=== PATIENT | male | born 1970 | race Caucasian/White ===

== ENCOUNTER → 2024-11-26 | Outpatient (CLI) | payer BC, SELFPAY ==
--- NOTE | 2024-11-26 09:12 | XR_ITS ---
Examination: PA lateral chest 2 views TECHNIQUE: Upright PA lateral chest 2 views Exam date and time: November 26, 2024 0929 hours Comparison May 26, 2024 INDICATIONS: History chest pain shortness of breath FINDINGS: No significant cardiac enlargement Cardiac leads satisfactory position No pneumonia or pulmonary edema Moderate osteopenia IMPRESSION: No pneumonia or pulmonary edema
[2024-11-26 09:51] LABS: Collection Type, Urine Clean Catch
[2024-11-26 10:40] LABS: Alanine Aminotransferase 17 U/L (10-49); Albumin, Serum 4.1 gm/dL (3.5-5.0); Albumin/Globulin Ratio 2.3 (1.2-2.2); Alkaline Phosphatase 113 U/L (46-116); Anion Gap 4 (7-16); Aspartate Amino Transferase 47 U/L (0-34); BUN/Creatinine Ratio 21 Ratio (12-20); Bilirubin,Total 0.6 mg/dL (0.3-1.2); Blood Urea Nitrogen 19 mg/dL (9-23); Calcium 9.3 mg/dL (8.3-10.6); Calcium (Corrected) 9.3 mg/dL (8.5-10.1); Carbon Dioxide 30.9 mMol/L (20.0-31.0); Cardiac Risk Estimate 2.6 RATIO (4.0-6.7); Chloride 105 mMol/L (98-107); Cholesterol 145 mg/dL (132-200); Creatinine (Component) 0.9 mg/dL (0.6-1.3); Globulin 1.8 gm/dL (2.3-3.5); Glucose 101 mg/dL (74-106); HDL Cholesterol 55 mg/dL (40-60); LDL Cholesterol,Calculated 75 mg/dL (0-130); Osmolality,Calculated 281 (275-295); Potassium 4.7 mMol/L (3.4-5.1); Sodium 140 mMol/L (136-145); Total Protein 5.9 gm/dL (5.7-8.2); Triglycerides 73 mg/dL (30-150); eGFR > 60 See Note
[2024-11-26 10:43] LABS: Basophils # (Auto) 0.1 Thou/mm3 (0.0-0.2); Basophils % (Auto) 1 % (0-2.5); Eosinophils # (Auto) 0.2 Thou/mm3 (0.0-0.5); Eosinophils % (Auto) 3 % (0-10); Hematocrit 32.5 % (41.0-53.0); Hemoglobin 9.7 g/dL (13.5-16.0); Immature Granulocytes % (Auto) 1 % (0-0); Immature Granulocytes Auto 0.05 Thou/mm3 (0.00-0.00); Lymphocytes # (Auto) 1.5 Thou/mm3 (1.0-4.8); Lymphocytes % (Auto) 21 % (10-50); Mean Corpuscular HGB Conc 29.8 g/dl (31.0-37.0); Mean Corpuscular Hemoglobin 21.4 pg (25.0-35.0); Mean Corpuscular Volume 72 fL (80-100); Monocytes # (Auto) 0.6 Thou/mm3 (0.0-0.8); Monocytes % (Auto) 9 % (0-12); Neutrophils # (Auto) 4.6 Thou/mm3 (1.8-7.7); Neutrophils % (Auto) 65 % (37-80); Nucleated Red Blood Cell % 0 /100 WBC (0); Platelet Count 302 Thou/mm3 (140-440); RDW Standard Deviation 39.8 fL (35.1-43.9); Red Blood Count 4.54 Miln/mm3 (4.50-5.90)
[2024-11-26 11:50] LABS: Bacteria,Urine Rare; Bilirubin,Urine Negative (Negative); Blood,Urine Negative (Negative); Clarity,Urine Clear (Clear/Hazy); Color,Urine Lt-Yellow (Lt Yel-Yel); Glucose, Urine Negative (Negative); Ketones,Urine Negative (Negative); Leukocyte Esterase,Urine Negative (Negative); Nitrite,Urine Negative (Negative); Protein,Urine Trace (Neg - Trace); RBC,Urine 2 /hpf (0-3); Specific Gravity,Urine 1.025 (1.001-1.035); Squamous Epithelial Cell,Urine < 1 /hpf (0-5); Urobilinogen,Urine Negative mg/dL (0.0-1.0); WBC,Urine 1 /hpf (0-5)
== END | disposition home or self-care (01) ==
PROVIDERS: PCP Family Medicine; Referring Provider Specialist; Visit Provider Specialist
DX: R06.02 Shortness of breath (principal); R07.9 Chest pain, unspecified; I10 Essential (primary) hypertension; Z00.00 Encounter for general adult medical examination without abnormal findings; E66.01 Morbid (severe) obesity due to excess calories; E64.9 Sequelae of unspecified nutritional deficiency
CPT/HCPCS: 36415; 71046; 80053; 80061; 81001; 85025

== ENCOUNTER → 2025-01-01 | Outpatient (CLI) | payer BC, SELFPAY ==
--- NOTE | 2025-01-01 15:13 | XR_ITS ---
Examination: PA lateral chest 2 views TECHNIQUE: Upright PA lateral chest 2 views Exam date and time: January 01, 2025 1534 hours INDICATIONS: Coughing shortness of breath 2 weeks FINDINGS: No significant cardiac enlargement Mild vascular congestion Accentuation basilar bronchovascular markings No lobar pneumonia or pulmonary edema IMPRESSION: Basilar bronchitis pattern
== END | disposition home or self-care (01) ==
LOC: CDIM 14:56
PROVIDERS: PCP Family Medicine; Referring Provider Family Medicine; Visit Provider Family Medicine
DX: R05.9 Cough, unspecified (principal); R06.02 Shortness of breath
CPT/HCPCS: 71046

== ENCOUNTER → 2025-01-20 | Outpatient (CLI) | payer BC, SELFPAY ==
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
== END | disposition home or self-care (01) ==
PROVIDERS: PCP Family Medicine; Referring Provider Anesthesiology Pain Medicine; Visit Provider Anesthesiology Pain Medicine
DX: M85.88 Other specified disorders of bone density and structure, other site (principal); G95.29 Other cord compression
CPT/HCPCS: 72131

== ENCOUNTER → 2025-03-23 | Outpatient (CLI) | payer BC, SELFPAY ==
[2025-03-23 11:15] LABS: Basophils % (Auto) 1 % (0-2.5); Eosinophils # (Auto) 0.1 Thou/mm3 (0.0-0.5); Eosinophils % (Auto) 3 % (0-10); Hematocrit 37.2 % (41.0-53.0); Hemoglobin 10.9 g/dL (13.5-16.0); Immature Granulocytes % (Auto) 1 % (0-0); Immature Granulocytes Auto 0.03 Thou/mm3 (0.00-0.00); Lymphocytes # (Auto) 1.3 Thou/mm3 (1.0-4.8); Lymphocytes % (Auto) 29 % (10-50); Mean Corpuscular HGB Conc 29.3 g/dl (31.0-37.0); Mean Corpuscular Hemoglobin 21.8 pg (25.0-35.0); Mean Corpuscular Volume 74 fL (80-100); Monocytes # (Auto) 0.5 Thou/mm3 (0.0-0.8); Monocytes % (Auto) 11 % (0-12); Neutrophils # (Auto) 2.6 Thou/mm3 (1.8-7.7); Neutrophils % (Auto) 56 % (37-80); Nucleated Red Blood Cell % 0 /100 WBC (0); Platelet Count 252 Thou/mm3 (140-440); RDW Standard Deviation 50.4 fL (35.1-43.9); Red Blood Count 5.01 Miln/mm3 (4.50-5.90); White Blood Count 4.6 Thou/mm3 (3.8-10.6)
[2025-03-23 11:23] LABS: Alanine Aminotransferase 19 U/L (10-49); Albumin, Serum 4.2 gm/dL (3.5-5.0); Albumin/Globulin Ratio 2.2 (1.2-2.2); Alkaline Phosphatase 110 U/L (46-116); Anion Gap 9 (7-16); BUN/Creatinine Ratio 14 Ratio (12-20); Bilirubin,Total 0.3 mg/dL (0.3-1.2); Blood Urea Nitrogen 15 mg/dL (9-23); Calcium 8.4 mg/dL (8.3-10.6); Calcium (Corrected) 8.4 mg/dL (8.5-10.1); Carbon Dioxide 31.4 mMol/L (20.0-31.0); Cardiac Risk Estimate 2.2 RATIO (4.0-6.7); Chloride 104 mMol/L (98-107); Cholesterol 144 mg/dL (132-200); Creatinine (Component) 1.1 mg/dL (0.6-1.3); Globulin 1.9 gm/dL (2.3-3.5); Glucose 103 mg/dL (74-106); HDL Cholesterol 66 mg/dL (40-60); LDL Cholesterol,Calculated 56 mg/dL (0-130); Osmolality,Calculated 287 (275-295); Sodium 144 mMol/L (136-145); Total Protein 6.1 gm/dL (5.7-8.2); Triglycerides 112 mg/dL (30-150); eGFR > 60 See Note
== END | disposition home or self-care (01) ==
LOC: COPL 09:50
PROVIDERS: PCP Family Medicine; Referring Provider Internal Medicine Cardiovascular Disease; Visit Provider Internal Medicine Cardiovascular Disease
DX: D64.9 Anemia, unspecified (principal); E78.2 Mixed hyperlipidemia; I10 Essential (primary) hypertension; I25.10 Atherosclerotic heart disease of native coronary artery without angina pectoris
CPT/HCPCS: 36415; 80053; 80061; 85025

== ENCOUNTER → 2025-04-21 | Outpatient (CLI) | payer BC, SELFPAY ==
--- NOTE | 2025-04-21 | XR_ITS ---
Examination: Abdomen AP single view Technique: AP portable supine abdomen, single view Exam date and time: April 21, 2025 1112 hours INDICATIONS: Abdominal pain one week. FINDINGS: Moderate to large amounts of stool throughout the colon No obstruction No free air Prominent osteopenia. Moderate bilateral hip osteoarthritis IMPRESSION: Moderate to large amounts of stool throughout the colon
== END | disposition home or self-care (01) ==
LOC: CDIM 10:59
PROVIDERS: PCP Family Medicine; Referring Provider Family Medicine; Visit Provider Family Medicine
DX: K59.00 Constipation, unspecified (principal)
CPT/HCPCS: 74018

== ENCOUNTER → 2025-05-20 | Outpatient (CLI) | payer BC, SELFPAY ==
--- NOTE | 2025-05-20 14:51 | XR_ITS ---
Examination: PA lateral chest 2 views TECHNIQUE: Upright PA lateral chest 2 views Date and time: May 20, 2025 1505 hours Comparison January 01, 2025 INDICATIONS: Coughing beginning 3 days ago. FINDINGS: Diffuse significant right lung pneumonia Mild enlargement cardiac contour with moderate vascular congestion. Cardiac leads satisfactory position IMPRESSION: Interval diffuse significant right lung pneumonia
== END | disposition home or self-care (01) ==
LOC: CDIM 14:24
PROVIDERS: PCP Family Medicine; Referring Provider Family Medicine; Visit Provider Family Medicine
DX: J18.9 Pneumonia, unspecified organism (principal)
CPT/HCPCS: 71046

== ENCOUNTER → 2025-06-09 | Outpatient (CLI) | payer BC, SELFPAY ==
[2025-06-09 17:15] LABS: Basophils # (Auto) 0.1 Thou/mm3 (0.0-0.2); Basophils % (Auto) 1 % (0-2.5); Eosinophils # (Auto) 0.1 Thou/mm3 (0.0-0.5); Eosinophils % (Auto) 1 % (0-10); Hematocrit 33.4 % (41.0-53.0); Hemoglobin 9.9 g/dL (13.5-16.0); Immature Granulocytes Auto 0.02 Thou/mm3 (0.00-0.00); Lymphocytes # (Auto) 1.6 Thou/mm3 (1.0-4.8); Lymphocytes % (Auto) 31 % (10-50); Mean Corpuscular HGB Conc 29.6 g/dl (31.0-37.0); Mean Corpuscular Hemoglobin 22.6 pg (25.0-35.0); Mean Corpuscular Volume 76 fL (80-100); Monocytes # (Auto) 0.7 Thou/mm3 (0.0-0.8); Monocytes % (Auto) 13 % (0-12); Neutrophils # (Auto) 2.8 Thou/mm3 (1.8-7.7); Neutrophils % (Auto) 54 % (37-80); Nucleated Red Blood Cell # 0.00 Thou/mm3 (0.00-0.00); Nucleated Red Blood Cell % 0 /100 WBC (0); Platelet Count 408 Thou/mm3 (140-440); RDW Standard Deviation 46.2 fL (35.1-43.9); Red Blood Count 4.39 Miln/mm3 (4.50-5.90); White Blood Count 5.2 Thou/mm3 (3.8-10.6)
[2025-06-09 17:30] LABS: Alanine Aminotransferase 17 U/L (10-49); Albumin, Serum 4.1 gm/dL (3.5-5.0); Albumin/Globulin Ratio 2.3 (1.2-2.2); Alkaline Phosphatase 133 U/L (46-116); Anion Gap 8 (7-16); Aspartate Amino Transferase 27 U/L (0-34); BUN/Creatinine Ratio 11 Ratio (12-20); Bilirubin,Total 0.6 mg/dL (0.3-1.2); Blood Urea Nitrogen 11 mg/dL (9-23); Calcium 9.4 mg/dL (8.3-10.6); Calcium (Corrected) 9.4 mg/dL (8.5-10.1); Carbon Dioxide 29.7 mMol/L (20.0-31.0); Chloride 97 mMol/L (98-107); Creatinine (Component) 1.0 mg/dL (0.6-1.3); Globulin 1.8 gm/dL (2.3-3.5); Glucose 91 mg/dL (74-106); Osmolality,Calculated 269 (275-295); Potassium 4.6 mMol/L (3.4-5.1); Prostate Specific Antigen 1.18 ng/mL (0-4.00); Sodium 135 mMol/L (136-145); Total Protein 5.9 gm/dL (5.7-8.2); eGFR > 60 See Note
[2025-06-09 17:35] LABS: Follicle Stimulating Hormone 28.01 mIU/mL (See Note); Vitamin B12 1544 pg/mL (211-911); Vitamin D 25 Hydroxy Total 16.7 ng/mL (7.3-40.2)
[2025-06-22 08:50] LABS: Luteinizing Hormone* 7.1 mIU/mL (1.5-9.3); Testosterone, Free,Dialysis 21.2 pg/mL (35.0-155.0); Testosterone, Total, Dialysis 241 ng/dL (250-1100)
== END | disposition home or self-care (01) ==
LOC: COPL 14:57
PROVIDERS: PCP Family Medicine; Referring Provider Nurse Practitioner Family; Visit Provider Nurse Practitioner Family
DX: E29.1 Testicular hypofunction (principal); E53.8 Deficiency of other specified B group vitamins; E55.9 Vitamin D deficiency, unspecified
CPT/HCPCS: 36415; 80053; 82306; 82607; 83001; 83002; 84153; 84402; 84403; 85025

== ENCOUNTER 2025-06-10 08:20 | Emergency (ER) | payer BC, SELFPAY ==
--- NOTE | 2025-06-10 08:25 | EKG_ITS ---
[facility] Test Date: 2025-06-10 Pat Name: CHRISTINA SEPULVEDA Department: Room: - Gender: Male Production Clerk: : 1970 Requested By: ED Temporary Provider Order Number: [id number] Reading MD: ED Temporary Provider Measurements Intervals [place] Rate: 61 P: 28 NM: 196 QRS: -3 QRSD: 96 T: 13 QT: 392 QTc: 398 Interpretive Statements SINUS RHYTHM LOW QRS VOLTAGE IN PRECORDIAL LEADS [QRS DEFLECTION < 1.0 mV IN CHEST LEADS] PATTERN CONSISTENT WITH PULMONARY DISEASE Compared to ECG 01/01/2024 14:59:07 Low QRS voltage now present Atrial fibrillation no longer present Ventricular premature complex(es) no longer present Aberrant conduction of supraventricular beat(s) no longer present Incomplete right bundle-branch block no longer present /store/S0/[id number]/[id number].pdf
[2025-06-10 08:32] VITALS: BP 108/74; PULSE 61; RESP 22; TEMP 37.1; O2SAT 95; BMI 45.8
--- NOTE | 2025-06-10 08:40 | XR_ITS ---
Examination: Venous duplex lower extremity sonogram, bilateral. Date and time of exam: 06/10/2025, 8:38 AM INDICATION: Bilateral leg swelling Technique: Multiple sonographic images of the deep venous system have been obtained. B-mode/2-D grayscale imaging of vascular structures and Doppler spectral analysis (waveforms) and color performed Both legs are examined. Findings: Deep venous systems do not demonstrate abnormal echogenicity. All visualized deep veins exhibit compressibility. All visualized deep veins exhibit augmentation. Impression: Negative for deep vein thrombosis
--- NOTE | 2025-06-10 08:40 | XR_ITS ---
Exam: Chest PA, lateral 2 views Technique: Chest upright PA lateral 2 views Date and time of exam: 06/10/2025, 8:38 AM INDICATION: Shortness of breath COMPARISON: 05/20/2025 Findings: Chronic segment 1 is enlarged with pulmonary vascular congestion. Scattered ill-defined areas of opacification bilateral lung bases. Upper zones are clear. Stable left-sided pacing device. No acute bony abnormality. Impression: Cardiomegaly with pulmonary vascular congestion. Bibasilar atelectasis versus infiltrates
--- NOTE | 2025-06-10 08:41 | PD.EDRME ---
Rapid Medical Screening Exam E Arrival date/time: 06/10/25 08:20 55-year-old male with medical history significant hypertension, pacemaker placement presents to the emergency department today for complaints of chest pain Chief Complaint: Chest Pain Vital signs: Vital Signs Temperature 98.7 F 06/10/25 08:32 Pulse Rate 61 06/10/25 08:32 Respiratory Rate 22 H 06/10/25 08:32 Blood Pressure 108/74 06/10/25 08:32 Pulse Oximetry (%) 95 06/10/25 08:32 Oxygen Delivery Method Room Air 06/10/25 08:32
[2025-06-10 10:15] LABS: Basophils # (Auto) 0.0 Thou/mm3 (0.0-0.2); Basophils % (Auto) 1 % (0-2.5); Eosinophils # (Auto) 0.1 Thou/mm3 (0.0-0.5); Eosinophils % (Auto) 1 % (0-10); Hematocrit 33.7 % (41.0-53.0); Hemoglobin 10.3 g/dL (13.5-16.0); Immature Granulocytes Auto 0.02 Thou/mm3 (0.00-0.00); Lymphocytes # (Auto) 1.5 Thou/mm3 (1.0-4.8); Lymphocytes % (Auto) 28 % (10-50); Mean Corpuscular HGB Conc 30.6 g/dl (31.0-37.0); Mean Corpuscular Hemoglobin 22.4 pg (25.0-35.0); Mean Corpuscular Volume 73 fL (80-100); Monocytes # (Auto) 0.6 Thou/mm3 (0.0-0.8); Monocytes % (Auto) 12 % (0-12); Neutrophils # (Auto) 3.1 Thou/mm3 (1.8-7.7); Neutrophils % (Auto) 58 % (37-80); Nucleated Red Blood Cell # 0.00 Thou/mm3 (0.00-0.00); Nucleated Red Blood Cell % 0 /100 WBC (0); Platelet Count 371 Thou/mm3 (140-440); RDW Standard Deviation 44.4 fL (35.1-43.9); Red Blood Count 4.60 Miln/mm3 (4.50-5.90); White Blood Count 5.3 Thou/mm3 (3.8-10.6)
[2025-06-10 10:29] LABS: Amphetamine/Methamp Scrn,U Negative (Negative); Barbiturate Screen,Urine Negative (Negative); Benzodiazepines Screen,Urine Negative (Negative); Benzoylecgonine Screen, Ur Negative (Negative); Fentanyl Screen,Urine Negative (Negative); Opiate Screen,Urine Positive (Negative); THC Screen,Urine Negative (Negative)
[2025-06-10 10:32] LABS: B-Type Natriuretic Peptide 88 pg/mL (0-100)
[2025-06-10 10:33] LABS: Alanine Aminotransferase 12 U/L (10-49); Albumin, Serum 4.2 gm/dL (3.5-5.0); Albumin/Globulin Ratio 1.7 (1.2-2.2); Alkaline Phosphatase 132 U/L (46-116); Anion Gap 6 (7-16); Aspartate Amino Transferase 31 U/L (0-34); BUN/Creatinine Ratio 9 Ratio (12-20); Bilirubin,Total 0.4 mg/dL (0.3-1.2); Blood Urea Nitrogen 9 mg/dL (9-23); Calcium 9.2 mg/dL (8.3-10.6); Calcium (Corrected) 9.2 mg/dL (8.5-10.1); Carbon Dioxide 30.2 mMol/L (20.0-31.0); Chloride 100 mMol/L (98-107); Creatinine (Component) 1.0 mg/dL (0.6-1.3); Estimated Creatinine Clearance 129.0 mL/min (>60); Globulin 2.5 gm/dL (2.3-3.5); Glucose 94 mg/dL (74-106); Magnesium 2.1 mg/dL (1.6-2.6); Osmolality,Calculated 270 (275-295); Potassium 4.9 mMol/L (3.4-5.1); Sodium 136 mMol/L (136-145); Total Protein 6.7 gm/dL (5.7-8.2); Troponin I < 0.020 ng/mL (0.0-0.045); eGFR > 60 See Note
[2025-06-10 10:38] LABS: INR 1.0 (0.9-1.3); Partial Thromboplastin Time 24.2 Seconds (22.0-36.0); Prothrombin Time 10.5 Seconds (9.0-12.2)
--- NOTE | 2025-06-10 13:17 | PD.EDCHEST ---
ED Chest Pain RME/HPI General Chief Complaint: Chest Pain Stated Complaint: CHEST PAIN X 4 DAYS Arrival date/time: 06/10/25 08:20 Limitations: no limitations RME / HPI RME / HPI narrative: 06/10/25 08:20 55-year-old male with medical history significant hypertension, pacemaker placement presents to the emergency department today for complaints of chest pain Symptoms resolved at time of arrival. Denies n,v, radiation to shoulders, weakness, fevers, chills no drugs alc smoking no recent travel, sick contacts, Related Data Home Medications ?Medication ?Instructions ?Recorded ?Confirmed escitalopram oxalate 5 mg tablet 10 mg PO QDAY 07/06/22 03/17/24 lamotrigine 200 mg tablet 200 mg PO QDAY 07/06/22 03/17/24 oxycodone-acetaminophen 10 mg-325 1 tab PO Q8H PRN Pain 07/06/22 03/17/24 mg tablet (Percocet) cariprazine 3 mg capsule (Vraylar) 3 mg PO QDAY 08/04/23 03/17/24 gabapentin 300 mg capsule 300 mg PO TID 08/04/23 03/17/24 Previous Rx's ?Medication ?Instructions ?Recorded metoprolol succinate 50 mg capsule 50 mg PO QDAY 30 days #30 ea 09/01/23 sprinkle, ext. release 24 hr (Kapspargo Sprinkle) Allergies Allergy/AdvReac Type Severity Reaction Status Date / Time Penicillins Allergy Unknown Verified 06/10/25 08:23 ED Exam General Limitations: Present no limitations General appearance: Present alert and in no apparent distress Head Head exam: Present atraumatic and normocephalic Eye Eye exam: Present normal appearance, PERRL and EOMI ENT ENT exam: Present normal exam, normal oropharynx and mucous membranes moist Neck Neck exam: Present normal inspection, full ROM and trachea midline; Absent tenderness Chest Chest inspection: Present normal inspection and symmetric chest wall rise Respiratory Respiratory exam: Present normal lung sounds bilaterally; Absent respiratory distress Cardiovascular Cardiovascular exam: Present regular rate and normal rhythm Abdominal Exam Abdominal exam: Present soft; Absent distention or tenderness Extremities Exam Extremities exam: Present normal inspection Neurological Exam Neurological exam: Present alert, oriented X3, CN II-XII intact and normal gait; Absent motor sensory deficit Psychiatric Psychiatric exam: Present normal affect Skin Skin exam: Present warm and dry Course Quality Measures none Orders Category Date Time Status EKG (ED ONLY) *Do not use* NOW Care 06/10/25 08:25 Completed EKG (ED Only) Stat Exams 06/10/25 08:25 Draft US venous doppler LE BI Stat Exams 06/10/25 08:40 Completed XR chest 2V Stat Exams 06/10/25 08:40 Completed B-Type Natriuretic Peptide Stat Lab 06/10/25 09:49 Completed CBC Stat Lab 06/10/25 09:49 Completed Comprehensive Metabolic Panel Stat Lab 06/10/25 09:49 Completed Drug Screen,Urine Stat Lab 06/10/25 09:55 Completed Magnesium Stat Lab 06/10/25 09:49 Completed Partial Thromboplastin Time Stat Lab 06/10/25 09:49 Completed Prothrombin Time with INR Stat Lab 06/10/25 09:49 Completed Troponin I Stat Lab 06/10/25 09:49 Completed Troponin I Stat Lab 06/10/25 13:30 Completed Vital Signs Vital signs: Vital Signs Temperature 98.7 F 06/10/25 08:32 Pulse Rate 61 06/10/25 08:32 Respiratory Rate 22 H 06/10/25 08:32 Blood Pressure 108/74 06/10/25 08:32 Pulse Oximetry (%) 95 06/10/25 08:32 Oxygen Delivery Method Room Air 06/10/25 08:32 Chest Pain MDM Narrative MDM Narrative:: Patient is a 55-year-old male seen emerged by concerns for chest pain. Vital signs and exam as listed. Prior provider evaluated patient ordered labs, EKG, chest x-ray. Offered medication for symptom relief. Labs without leukocytosis, no left shift, patient hemoglobin is 10.3 this is at patient's baseline. Troponin not elevated, no transaminitis, no evidence of renal dysfunction. Drug screen positive for opiates. Lower extremity ultrasound without evidence of DVT. BNP not elevated. Chest x-ray with cardiomegaly, and bibasilar infiltrates versus atelectasis. EKG performed today at 830 2 in the morning notable for sinus rhythm, normal levels, nonspecific T wave changes, not cardiac alert. Will order repeat troponin. Repeat troponin not elevated. On reevaluation patient hemodynamically stable not distressed will discharge to home with close return precautions follow-up with PCP. Patient in agreement with treatment plan Patient data External records reviewed:: [facility] previous records Clinical information provided by:: patient Social determinants that could affect healthcare access:: none Patient has the following chronic illnesses:: see mdm How is presenting disease/condition affected by chronic disease/condition?: exacerbated by Evaluation data The following diagnostics were reviewed and interpreted by me:: lab results, radiology exam(s) and EKG tracing(s) Lab and/or radiology exams considered but not ordered:: none Interpretation Summary: see mdm Medications / Prescriptions Medications or Prescriptions considered but not ordered:: none Medication administrations:: none Consultations Consultation(s) initiated? (list below): No Diagnosis Chest Pain Differential Diagnosis: other Most likely diagnosis given after review of the tests above:: see mdm Admission Indicated Admission indicated?: not indicated Admission Request Was there a request for admission?: No Disposition Plan Disposition Plan: Discharge Discharge Attestation Discharge Attestation: The patient and all family members were given an opportunity to ask questions and understood the discharge instructions. Discharge instructions specifically effects, indications for sooner follow up or return to the emergency department, and the expected course of current diagnosis. Patient condition: Stable Discharge Plan Plan Patient Disposition: HOME (Self Care) Prescriptions/Referrals Prescriptions/Med Rec: No Action gabapentin 300 mg Capsule 300 mg PO TID Vraylar 3 mg Capsule 3 mg PO QDAY Kapspargo Sprinkle 50 mg capsule,sprinkle,ER 24hr 50 mg PO QDAY 30 Days Qty: 30 2RF lamotrigine 200 mg Tablet 200 mg PO QDAY oxycodone-acetaminophen [Percocet] 10-325 mg Tablet 1 tab PO Q8H PRN (Reason: Pain) escitalopram oxalate 5 mg Tablet 10 mg PO QDAY Referrals: Arnoldo Cordon MD [Primary Care Provider] - In 1 week Problem List Clinical Impression: Chest pain Patient/Caregiver Discharge Instructions Education Materials: ED Chest Pain, Uncertain Cause Additional Instructions: Please follow-up with your primary care doctor within the next 1 to 2 days. Also please call Dr. Rachel discuss her symptoms and whether that you need to be evaluated for a repeat stress test. Please recalibrate your CPAP machine and use as prescribed. Return immediately if you have worsening symptoms or new symptoms of concern Print Language: Emirati Stand Alone Forms: Pamela Award Info., Patient Portal Info Letter
[2025-06-10 14:07] LABS: Troponin I < 0.020 ng/mL (0.0-0.045)
[2025-06-10 16:30] VITALS: BP 159/98; PULSE 63; RESP 20; TEMP 36.8; O2SAT 95
== END 2025-06-10 17:01 | disposition home or self-care (01) ==
PROVIDERS: Nurse Practitioner Primary Care; Emergency Provider Emergency Medicine; PCP Family Medicine
DX: R07.9 Chest pain, unspecified (principal); I11.9 Hypertensive heart disease without heart failure; M79.89 Other specified soft tissue disorders; R94.31 Abnormal electrocardiogram [ECG] [EKG]; Z95.0 Presence of cardiac pacemaker
CPT/HCPCS: 36415; 71046; 80053; 80307; 83735; 83880; 84484; 85025; 85610; 85730; 93005; 93970; 99283